=== PATIENT | female | born 1960 | race African-American/Black ===

== ENCOUNTER 2024-03-12 22:44 | Emergency (ER) | payer BC ==
[~2024-03-12] VITALS: Ht 167.6 cm; Wt 97.5 kg
[2024-03-12 22:49] VITALS: BP 132/68; PULSE 85; RESP 18; TEMP 97; O2SAT 95
[2024-03-12] MEDS: KETOROLAC 60 MG/2 ML VIAL IM ONE (23:27)
[2024-03-12] MEDS ORDERED: NAPR-337 PO (23:48)
== END 2024-03-12 23:52 | disposition home or self-care (01) ==
LOC: MED 22:44
DX: M54.42 Lumbago with sciatica, left side (principal); Z79.1 Long term (current) use of non-steroidal anti-inflammatories (NSAID)
CPT/HCPCS: 96372; 99283; J1885

== ENCOUNTER 2024-04-15 14:20 | Emergency (ER) | payer BC ==
[~2024-04-15] VITALS: Ht 167.6 cm; Wt 97.5 kg
[~2024-04-15 14:20] MED LIST: NAPR-337 PO
[2024-04-15 14:22] VITALS: BP 129/70; PULSE 76; RESP 20; TEMP 98.9; O2SAT 98
[2024-04-15] MEDS: KETOROLAC 30 MG/ML VIAL IM ONE (15:19)
[2024-04-15] MEDS ORDERED: CAPS1ADH5 TP (15:33)
[2024-04-15] MEDS ORDERED: NAPR-1704 PO (15:33)
[2024-04-15] MEDS ORDERED: METH-1681 PO (15:38)
[2024-04-15] MEDS: HYDROcodone/APAP 5/325 MG 1 TAB TAB PO ONE (15:46)
[2024-04-15 15:49] VITALS: BP 125/69; PULSE 71; RESP 18; TEMP 98.9; O2SAT 98
== END 2024-04-15 15:55 | disposition home or self-care (01) ==
LOC: MED 14:20
DX: G44.209 Tension-type headache, unspecified, not intractable (principal); I10 Essential (primary) hypertension; Z98.890 Other specified postprocedural states; Z79.899 Other long term (current) drug therapy
CPT/HCPCS: 70450; 96372; 99285; J1885